=== PATIENT | male | born 1960 | race Caucasian/White ===

== ENCOUNTER 2021-04-15 13:38 | Outpatient (REF) | payer OTHER, SELFPAY ==
[2021-04-15 14:18] LABS: COVID-19 Test Negative (Negative)
== END 2021-04-15 13:39 | disposition home or self-care (01) ==
LOC: HO.LAB 13:38
PROVIDERS: PCP Internal Medicine; Visit Provider Internal Medicine
DX: Z20.822 Contact with and (suspected) exposure to COVID-19 (principal)
CPT/HCPCS: 36415; 87635; C9803